=== PATIENT | male | born 1980 | race American Indian/Alaskan Native ===

== ENCOUNTER 2022-04-10 14:43 | Outpatient (REF) | payer OTHER, SELFPAY ==
[2022-04-10 15:12] LABS: MANUAL DIFF FLAG NO
[2022-04-10 15:33] LABS: Basophils Absolute Auto 0.1 X10*3/uL (0.0-0.2); Basophils Percent Auto 0.6 % (0-2); Eosinophils Absolute Auto 0.1 X10*3/uL (0.0-0.4); Hematocrit 41.2 % (42.0-52.0); Imm Gran Abs Auto 0.02 X10*3/uL (0.00-0.03); Imm Gran Pct Auto 0.2 % (0.0-0.4); Lymphocytes Absolute Auto 2.7 X10*3/uL (1.2-4.9); Mean Corpuscular HGB Conc 31.6 g/dl (31.0-36.0); Mean Corpuscular Hemoglobin 25.7 pg (27.0-33.0); Mean Corpuscular Volume 81.4 fL (80.0-98.0); Mean Platelet Volume 11.8 fL (9.4-12.4); Monocytes Absolute Auto 0.7 X10*3/uL (0.1-1.2); Monocytes Percent Auto 6.5 % (2-11); Neutrophils Absolute Auto 6.5 x10*3/uL (2.0-8.3); Neutrophils Percent Auto 64.7 % (45-73); Platelet Count 225 X10*3/uL (160-400); Red Blood Count 5.06 X10*6/uL (4.60-5.80); Red Cell Distribution Width 16.1 % (11.0-16.0); White Blood Count 10.1 X10*3/uL (4.8-10.8)
[2022-04-10 16:28] LABS: Alanine Aminotransferase 13 U/L (0-40); Albumin Level 4.4 g/dL (3.5-5.0); Alkaline Phosphatase 79 U/L (39-117); Anion Gap 12 (12-20); Aspartate Amino Transferase 18 U/L (5-37); Bilirubin Total 0.3 mg/dL (0.0-1.0); Blood Urea Nitrogen 11 mg/dL (9-16); Calcium 9.7 mg/dL (8.4-10.2); Carbon Dioxide 28 mmol/L (22-29); Chloride 108 mmol/L (96-108); Estimated Glomerular Filt Rate > 60; Glucose Random 73 mg/dL (60-115); Sodium 144 mmol/L (135-145); TSH reflex Free T4 1.69 uIU/mL (0.32-4.0); Total Protein 7.6 g/dL (6.5-8.0)
[2022-04-10 16:43] LABS: Folate 10.6 ng/mL (> or = 4.0); Vitamin B12 375 pg/mL (200-900)
== END 2022-04-10 14:44 | disposition home or self-care (01) ==
LOC: HO.LAB 14:43
PROVIDERS: PCP Internal Medicine; Visit Provider Nurse Practitioner Family
DX: G47.10 Hypersomnia, unspecified (principal); R41.3 Other amnesia; R53.83 Other fatigue; I10 Essential (primary) hypertension
CPT/HCPCS: 36415; 80053; 82607; 82746; 84443; 85025; 99202

== ENCOUNTER → 2022-06-12 11:29 | Outpatient (BNVA) | payer OTHER, SELFPAY | PROVIDERS: PCP Internal Medicine; Visit Provider Nurse Practitioner Family | DX: G47.10 Hypersomnia, unspecified (principal); R41.3 Other amnesia; R06.83 Snoring; R41.840 Attention and concentration deficit | CPT/HCPCS: 99212 ==

== ENCOUNTER → 2023-01-07 09:34 | Outpatient (REF) | payer OTHER, SELFPAY | LOC: HO.SL 09:34 | PROVIDERS: PCP Internal Medicine; Visit Provider Nurse Practitioner Family | DX: G47.10 Hypersomnia, unspecified (principal); R06.83 Snoring; E66.9 Obesity, unspecified | CPT/HCPCS: 95806 ==

== ENCOUNTER → 2023-01-07 10:04 | Outpatient (BNV) | payer OTHER, SELFPAY | PROVIDERS: PCP Internal Medicine; Visit Provider Psychiatry & Neurology Neurology | DX: R06.83 Snoring (principal) | CPT/HCPCS: 95806 ==

== ENCOUNTER 2023-02-09 14:19 | Outpatient (AMB) | payer OTHER, SELFPAY ==
--- NOTE | 2023-02-09 14:32 | MHC.OFFVIS ---
Intake Vital Signs 02/09/23 14:33 Height 6 ft 1 in Weight 267 lb BMI 35.2 BP 142/102 H Blood Pressure Location Rt brachial Position Sitting Pulse 66 Pulse Source Pulse Oximeter Pulse Oximetry (%) 97 Oxygen Delivery Method Room Air Intake Visit Reasons: f/u to discuss Sleep study-Confirmed Intake Note: Patient presents for sleep study results.patient states I'm here for my sleep study results. Allergies No Known Allergies Allergy (Verified 02/09/23 14:34) Medication List - Last Reconciled 02/09/23 by Jaylene Cantrell CNP amlodipine 10 mg PO DAILY furosemide 20 mg PO BID hydralazine 25 mg PO QID lorazepam (Ativan) 0.5 mg PO DAILY PRN metoprolol succinate ER 50 mg PO DAILY valsartan 320 mg PO DAILY HPI HPI Comments History of Present Illness Details 42 y/o male patient presents for follow up of short term memory loss and sleep study. The home sleep study was inconclusive. 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 Pt states that he was diagnosed with narcolepsy in 2021, but not treated. Last ESS 15. He started exercise, aerobic exercise three times a week. Refer patient to neuropsycholgy evaluation, but he has not a call for schedule yet. Pt reports his sleep schedule is irregular. He has anxiety and depression, sees therapist regularly. He gained 12 lb more over the last 8 months. He eats only 1-2 meal a day, lots of take outs. PFSH Surgical History Hx of nasal septoplasty H/O umbilical hernia repair H/O colonoscopy H/O esophagogastroduodenoscopy Family History Mother HTN (hypertension) Diabetes Daughter Asthma Daughter Anemia Daughter Cerebral palsy Social History Alcohol intake: former Patient Tobacco Use Status: Former Tobacco user Review of Systems Const All systems reviewed & are unremarkable except as noted in HPI and below ENT Reports Normal hearing present Neuro Reports Normal hearing present Physical Exam Vital Signs: Last Vital Signs Pulse 66 02/09/23 14:33 BP 142/102 H 02/09/23 14:33 Pulse Ox 97 02/09/23 14:33 Oxygen Delivery Method Room Air 02/09/23 14:33 BMI result Body Mass Index 35.2 Const General: cooperative Nutritional Appearance: obese Orientation/consciousness: patient oriented x3 HEENT Throat: Yes other (mallampati grade 4) Neck Neck: Yes full ROM and Yes supple Resp Effort & Inspection: normal respiratory effort and able to speak in complete sentences Neuro General: patient oriented x3, gait normal and moves all extremities Cranial nerves: Yes Bilaterally intact EOM present, Yes Normal facial strength present, Yes Midline tongue present, Yes Symmetric palate elevation present, Yes Normal hearing present, Yes Ability to bilaterally rotate head present and Yes Ability to bilaterally elevate shoulders present Cognition (Neuro): normal cognition Gait exam (Neuro): Normal gait present Motor exam (neuro): 5/5 motor strength present throughout, Pronator motor function not present and no tremor noted Psych Appearance: grossly normal Mental Status: mental status grossly normal Speech and movement: Normal speech and movement present Affect: normal affect Assessment & Plan Assessment & Plan (1) Memory loss: Code(s): R41.3 - Other amnesia (2) Hypersomnia: Code(s): G47.10 - Hypersomnia, unspecified (3) Snoring: Code(s): R06.83 - Snoring (4) Difficulty concentrating: Code(s): R41.840 - Attention and concentration deficit Plan Advised patient to undergo lab sleep study to assess NILESH to contribute memory loss and uncontrolled HTN. Will f/u of neuropsy evaluation for memory loss and difficulty concentrating. Sleep hygiene education provided. Continue to do exercise regularly and try to have well balanced diet. Coding Level of Care Code Est Pt Level 3 (41549) Diagnoses Memory loss R41.3 Hypersomnia G47.10 Snoring R06.83 Difficulty concentrating R41.840
[2023-02-09 14:33] VITALS: BP 142/102; PULSE 66; O2SAT 97; BMI 35.2
== END 2023-02-09 14:52 | disposition home or self-care (01) ==
PROVIDERS: PCP Internal Medicine; Visit Provider Nurse Practitioner Family
DX: R41.3 Other amnesia (principal); G47.10 Hypersomnia, unspecified; R06.83 Snoring; R41.840 Attention and concentration deficit
CPT/HCPCS: 99213

== ENCOUNTER → 2023-02-09 14:19 | Outpatient (BNVA) | payer OTHER, SELFPAY | PROVIDERS: PCP Internal Medicine; Visit Provider Nurse Practitioner Family | DX: G47.10 Hypersomnia, unspecified (principal); R41.3 Other amnesia; R06.83 Snoring; R41.840 Attention and concentration deficit | CPT/HCPCS: 99212 ==